=== PATIENT | male | born 1955 | race African-American/Black ===

== ENCOUNTER 2016-12-10 00:25 | Inpatient (IN) | payer OTHER ==
[~2016-12-10] VITALS: Ht 195.6 cm; Wt 95.3 kg
--- NOTE | ~2016-12-10 | PN ---
Unit #: [id number] #: [id number] Patient: EUNICE FLORES [id number] [facility] [address] [place] [address] [id number] I MR#: [id number] NAME: EUNICE FLORES ROOM: [facility] Age: 61 Sex: M Admission Date: 12/10/2016 : 1955 Attending Physician: Mauricio Foote M.D. Admitting Physician: Mauricio Foote M.D. Primary Care Physician: Primary Care Physician Kiara BUSTOS PROGRESS NOTES DATE 12/23/2016 DISCUSSION The patient is abed. He continues to require one to one precautions secondary to his instability. The patient reports no psychotic symptoms when seen today but continues to exhibit some symptoms of confusion. His urinary issues persist. Dictated by... Mauricio Foote M.D. CB/fernando TD: 12/23/2016 23:01 JOB #: [id number] [facility] PROGRESS NOTES Page 1 of 1 X Mauricio Foote MD PROGRESS NOTE
--- NOTE | ~2016-12-10 | PN ---
Unit #: [id number] #: [id number] Patient: EUNICE FLORES [id number] [facility] [address] [place] [address] [id number] I MR#: [id number] NAME: EUNICE FLORES ROOM: [facility] [place][Note 2] Age: 61 Sex: M Admission Date: 12/10/2016 : 1955 Attending Physician: Mauricio Foote M.D. Admitting Physician: Mauricio Foote M.D. Primary Care Physician: Primary Care Physician Kiara BUSTOS PROGRESS NOTES DATE 12/13/2016 DISCUSSION The patient remains floridly psychotic. His delusions of paranoia are such that the patient is actually tearful during today's interview, fearful that he is going to be harmed if released from the hospital. I will increase Haloperidol to 5 mg twice daily. Dictated by... Mauricio Foote M.D. CB/bzg TD: 12/13/2016 14:07 JOB #: [id number] [facility] PROGRESS NOTES Page 1 of 1 X Mauricio Foote MD PROGRESS NOTE
--- NOTE | ~2016-12-10 | PN ---
Unit #: [id number] #: [id number] Patient: EUNICE FLORES [id number] [facility] [address] [place] [address] [id number] I MR#: [id number] NAME: EUNICE FLORES ROOM: [facility] Age: 61 Sex: M Admission Date: 12/10/2016 : 1955 Attending Physician: Mauricio Foote M.D. Admitting Physician: Mauricio Foote M.D. Primary Care Physician: Primary Care Physician Kiara BUSTOS PROGRESS NOTES DATE 12/19/2016 DISCUSSION The patient remains abed and one-to-one precautions remain necessary secondary to his unsteadiness. He continues to exhibit picking at his bed clothes consistent with the delirium. We continue current aggressive pharmacotherapy. His repeat urinalysis was entirely normal. We await results of CMP and CBC with diff. Dictated by... Mauricio Foote M.D. REINIER/jeannie TD: 12/19/2016 13:41 JOB #: [id number] [facility] PROGRESS NOTES Page 1 of 1 X Mauricio Foote MD PROGRESS NOTE
--- NOTE | ~2016-12-10 | CO ---
Unit #: [id number] #: [id number] Patient: EUNICE FLORES [id number] [place] [address] [id number] I MR#: [id number] NAME: EUNICE FLORES ROOM: [facility] Age: 61 Sex: M Admission Date: 12/10/2016 : 1955 Attending Physician: Mauricio Foote M.D. Primary Care Physician: Primary Care Physician No Consultation Date: 12/25/2016 CONSULTATION REPORT SUBJECTIVE Lencho is a 61-year-old, housed on [address]. Sometime in the past 72 hours, he fell, injuring his right elbow. He sustained an abrasion to the elbow and over the past 24 hours, has developed swelling, heat, and pus in the area. X-rays done on 12/24/2016 showed no dislocation or fracture of the elbow or right shoulder. OBJECTIVE Alert, elderly gentleman, sitting in a wheelchair, who complains of discomfort in his elbow with minimal manipulation. Right elbow approximately quarter-sized braced area with small amount of pus. The elbow is swollen warm and very tender. No odor is noted. ASSESSMENT Cellulitis, right elbow. PLAN 1. Rocephin 500 mg IM now. Start Cipro 750 mg b.i.d. on 12/26/2016. 2. I have written orders to ask for medical social consultant's help in getting this gentleman to a rehab/nursing facility. Dictated by... Sharee Millan P.A.-C. for Nettie Rowland/jorgito TD: 12/25/2016 17:40 JOB #: [id number] CONSULTATION REPORT Page 1 of 1 X Sharee Millan CONSULTATION REPORT
--- NOTE | ~2016-12-10 | PN ---
Unit #: [id number] #: [id number] Patient: UENICE FLORES [id number] [facility] [address] [place] [address] [id number] MR#: [id number] NAME: EUNICE FLORES ROOM: [facility] Age: 61 Sex: M Admission Date: 12/10/2016 : 1955 Attending Physician: Mauricio Foote M.D. Admitting Physician: Mauricio Foote M.D. Primary Care Physician: Primary Care Physician Kiara BUSTOS PROGRESS NOTES DATE 12/25/2016 DISCUSSION The patient continues to appear confused in spite of reduction in his pharmacotherapy. He remains quite unsteady. I will ask for Physical Therapy to come and see the patient in hopes that perhaps he would qualify for a physical therapy rehab stint following his discharge from the hospital given the degree of weakness he is exhibiting here in the hospital. He remains quite disorganized and confused and appears delirious. We continue to await word regarding the patient's elbow wound. Dictated by... Mauricio Foote M.D. REINIER/jeannie TD: 12/25/2016 14:26 JOB #: [id number] [facility] PROGRESS NOTES Page 1 of 1 X Maurciio Foote MD X PROGRESS NOTE
--- NOTE | ~2016-12-10 | PN ---
Unit #: [id number] #: [id number] Patient: EUNICE FLORES [id number] [facility] [address] [place] [address] [id number] I MR#: [id number] NAME: EUNICE FLORES ROOM: [facility] [place] Age: 61 Sex: M Admission Date: 12/10/2016 : 1955 Attending Physician: Mauricio Foote M.D. Admitting Physician: Mauricio Foote M.D. Primary Care Physician: Primary Care Physician Kiara BUSTOS PROGRESS NOTES DATE 12/15/2016 DISCUSSION The patient is resting comfortably this morning. Staff reports that the patient has periods of lucidity but has also had periods where he appears to be continuing to respond to internal stimuli. He also has exhibited significant mood lability. We continue aggressive pharmacotherapy with the addition of fairly highly dosed Haldol in the hope that the patient will sustain progress. Dictated by... Mauricio Foote M.D. CB/jeannie TD: 12/15/2016 11:42 JOB #: [id number] [facility] PROGRESS NOTES Page 1 of 1 X Mauricio Foote MD X PROGRESS NOTE
--- NOTE | ~2016-12-10 | CO ---
Unit #: [id number] #: [id number] Patient: EUNICE FLORES [id number] [facility] [address] [place] [address] [id number] I MR#: [id number] NAME: EUNICE FLORES ROOM: [facility] Age: 61 Sex: M Admission Date: 12/10/2016 : 1955 Attending Physician: Mauricio Foote M.D. Primary Care Physician: Primary Care Physician No Consultation Date: 12/16/2016 CONSULTATION REPORT ORDERING PROVIDER Dr. Foote. REASON FOR CONSULT Weakness, incontinence, confusion and a fall from the bed with right elbow injury. SUBJECTIVE The patient reports that he has had issues with confusion on and off for months to years. He does, however, report some new worsening generalized weakness. He denies ever having a stroke or TIA. He denies that the weakness is one sided. He denies any slurred speech and reports that at times, the weakness is better. He does report that yesterday he was trying to get out of bed and fell injuring his right elbow. He at times does not make it to the bathroom to urinate and has had some issues with incontinence as well. This is a new finding since being admitted to [facility]. OBJECTIVE Other than generalized weakness, his neuro examination is within normal limits. His vital signs are stable. His labs upon admission were unremarkable. His medications were reviewed and he is noted to be on several sedating and mind-altering medications including gabapentin, Seroquel, Remeron and Haldol. He did appear to be awake, alert, and oriented when I spoke to him, but per nursing, he seems to get worse at night, possibly due to the sedating medications. ASSESSMENT Weakness, confusion and incontinence. PLAN Zofran was ordered per nursing request for some nausea even though the patient could not discuss that with me. We will get repeat lab work including urinalysis. If all of that is normal, I would advise Psychiatry to take a look at his medications and see if any changes need to be made. I did go ahead and discontinue his gabapentin for now, although he was on a fairly low dose, but I am unsure if that were causing any of the symptoms. We will continue to monitor. Dictated by... Sherry Monique A.P.R.N. Unit #: [id number] #: [id number] Patient: EUNICE FLORES LYNNETTE/jorgito TD: 12/17/2016 02:41 JOB #: [id number] CONSULTATION REPORT Page 1 of 1 X SHERRY MONIQUE APRN CONSULTATION REPORT
--- NOTE | ~2016-12-10 | PN ---
Unit #: [id number] #: [id number] Patient: EUNICE FLORES [id number] [facility] [address] [place] [address] [id number] I MR#: [id number] NAME: EUNICE FLORES ROOM: [facility] Age: 61 Sex: M Admission Date: 12/10/2016 : 1955 Attending Physician: Mauricio Foote M.D. Admitting Physician: Mauricio Foote M.D. Primary Care Physician: Primary Care Physician Kiara BUSTOS PROGRESS NOTES DATE 12/22/2016 DISCUSSION The patient remains on one-to-one precautions, and we remain concerned about the patient's unsteady gait. He does seem less confused and paranoid with reduction of medications, and we will hold the Seroquel dose of 400 mg for the time being. Dictated by... Mauricio Foote M.D. CB/bzg TD: 12/22/2016 11:27 JOB #: [id number] [facility] NOTES Page 1 of 1 X Mauricio Foote MD PROGRESS NOTE
--- NOTE | ~2016-12-10 | PN ---
Unit #: [id number] #: [id number] Patient: EUNICE FLORES [id number] [facility] [address] [place] [address] [id number] I MR#: [id number] NAME: EUNICE FLORES ROOM: [facility] Age: 61 Sex: M Admission Date: 12/10/2016 : 1955 Attending Physician: Mauricio Foote M.D. Admitting Physician: Mauricio Foote M.D. Primary Care Physician: Primary Care Physician Kiara PENA NOTES DATE 12/16/2016 DISCUSSION The patient is now exhibiting symptoms consistent with a possible delirium with periods of lucidity coupled with periods of extreme confusion. It was thought that he was experiencing extrapyramidal symptoms last night and Haldol was briefly held however on examination this morning the patient exhibits absolutely no stiffness or cogwheeling. I will restart low dose Haldol and add scheduled Cogentin. The patient was incontinent of urine last evening and there is some question as to whether he may be suffering from urinary tract infection which could be the cause of his confusional state. I will recheck a UDS. However the patient has had to 2 UDS in the past week and both were negative. Dictated by... Mauricio Foote M.D. CB/fernando TD: 12/16/2016 21:33 JOB #: [id number] [facility] NOTES Page 1 of 1 X Mauricio Foote MD X PROGRESS NOTE
--- NOTE | ~2016-12-10 | PA ---
Unit #: [id number] #: [id number] Patient: EUNICE FLORES [id number] [place] [address] [id number] I MR#: [id number] NAME: EUNICE FLORES ROOM: [facility] Age: 61 Sex: M Admission Date: 12/10/2016 : 1955 Date of Assessment: 12/11/2016 Attending Physician: Mauricio Foote M.D. Admitting Physician: Mauricio Foote M.D. Primary Care Physician: Primary Care Physician No PSYCHIATRIC ASSESSMENT IDENTIFYING INFORMATION The patient is a 61-year-old male admitted with increasing paranoia. CHIEF COMPLAINT None given. INFORMANT(S) Patient and chart, reliability good. HISTORY OF PRESENT ILLNESS The patient is a 61-year-old male who is chronically psychiatrically ill. He is currently prescribed Remeron, Wellbutrin, gabapentin, Lamictal, and Seroquel. Most recently, the patient has been more and more paranoid stating that he is fearful that others are out to harm him. He has reached a point where he is actually going from place to place, hiding in bushes secondary to his concerns. The patient denies abuse of any psychoactive substances and states that he has been compliant with his prescribed medications. He denies recent changes in sleep or appetite. The patient does have a history of previous psychiatric hospitalization under similar circumstances. PAST PSYCHIATRIC HISTORY As above. PAST MEDICAL HISTORY Significant for a history of hyperlipidemia, glaucoma, hypertension, and foot pain. MEDICATIONS Remeron, Wellbutrin, gabapentin, Seroquel, Lamictal, hydrochlorothiazide, Pravastatin, and Travatan. ALLERGIES None. FAMILY HISTORY Noncontributory. SOCIAL HISTORY The patient lives alone. He is not presently employed. He reports that he is a smoker. He denies abuse of other psychoactive substances. Unit #: [id number] #: [id number] Patient: EUNICE FLORES MENTAL STATUS EXAMINATION Examination at this time reveals the patient to be a tall, thin, male appearing his stated age. He is in no apparent physical distress at the time of the examination. He is awake, alert, and oriented in all spheres. His mood is dysphoric, his affect blunted. Speech is generally well-coherent. There are no gross deficits in memory or cognition noted. Intelligence is judged to be in the average range based on fund of knowledge. The patient is cooperative throughout the interview. He is currently denying suicidal or homicidal ideation. He does report positive paranoid delusional thinking, and judgment and insight appear to be significantly impaired. ASSETS AND LIABILITIES The patient's assets are to be assessed. Liabilities: Lack of resources. DIAGNOSTIC IMPRESSION Schizoaffective disorder. TREATMENT PLAN The patient is already on a maximum dose of Seroquel and further upward titration of that medication which seemed to be pointless. Instead, I will go ahead and start the patient on low-dose Haloperidol to augment the clinical effect of his high dose of Seroquel. The patient will participate in appropriate order of milieu activities. ESTIMATED LENGTH OF STAY 7 days. Dictated by... Mauricio Foote M.D. REINIER/jeannie TD: 12/11/2016 14:14 JOB #: [id number] PSYCHIATRIC ASSESSMENT Page 1 of 1 X Mauricio Foote MD X PSYCHIATRIC ASSESSMENT
--- NOTE | ~2016-12-10 | PN ---
Unit #: [id number] #: [id number] Patient: EUNICE FLORES [id number] [facility] [address] [place] [address] [id number] I MR#: [id number] NAME: EUNICE FLORES ROOM: [facility] Age: 61 Sex: M Admission Date: 12/10/2016 : 1955 Attending Physician: Mauricio Foote M.D. Admitting Physician: Mauricio Foote M.D. Primary Care Physician: Primary Care Physician Kiara BUSTOS PROGRESS NOTES DATE 12/12/2016 DISCUSSION The patient has tolerated initiation of low-dose Haldol without complaint. He seems less paranoid during today's interview and states that he has been attending programming. The staff reports he has been somewhat seclusive to room. We continue current pharmacotherapy. Dictated by... Mauricio Foote M.D. REINIER/jeannie TD: 12/12/2016 13:15 JOB #: [id number] [facility] PROGRESS NOTES Page 1 of 1 X Mauricio Foote MD PROGRESS NOTE
--- NOTE | ~2016-12-10 | CR94 ---
[facility] A Service of [facility] & [facility] RADIOLOGY TEXT RESULTS PATIENT: EUNICE FLORES LOCATION: P2L P265-1 : [birth year] UNIT #: [id number] AGE: [address]: Mauricio Foote MD SEX: M ORDER DR: [id number] [facility] [address] [place], [place] [address] [id number] I MR#: [id number] Acc #: [id number] NAME: EUNICE FLORES : 1955 SEX: M STUDY DATE/TIME: 12/24/2016 12:10 UNIT: P2 ROOM: [facility] STUDY DESCRIPTION: CR Elbow Min 3 Views Rt Attending Physician: Mauricio Foote M.D. Ordering Physician: Keon Martinez M.D. Primary Care Physician: Primary Care Physician No MEDICAL IMAGING REPORT This report is preliminary unless electronic signature is present EXAM Right elbow 2 views, 12/24/2016 HISTORY Right elbow pain and swelling status post fall 2 days ago. FINDINGS Two views of the right elbow demonstrate no fracture. The bones are normally mineralized. There is soft tissue swelling about the right elbow. No foreign body is seen. IMPRESSION Soft tissue swelling about the right elbow. No evidence of fracture. Dictated by... Roger Toure M.D. THIS IS AN ELECTRONICALLY VERIFIED REPORT Roger Toure M.D. at 12/25/2016 10:35 AM HERMELINDO/makenzie TD: 12/24/2016 13:26 JOB #: [id number] MEDICAL IMAGING REPORT Page 1 of 1 COPY
--- NOTE | ~2016-12-10 | PN ---
Unit #: [id number] #: [id number] Patient: EUNICE FLORES [id number] [facility] [address] [place] [address] [id number] I MR#: [id number] NAME: EUNICE FLORES ROOM: [facility] Age: 61 Sex: M Admission Date: 12/10/2016 : 1955 Attending Physician: Mauricio Foote M.D. Admitting Physician: Mauricio Foote M.D. Primary Care Physician: Primary Care Physician Kiara BUSTOS PROGRESS NOTES DATE 12/17/2016 DISCUSSION The patient remains abed. He is more awake and alert today but continues to exhibit confusion and paranoia. We continue current treatment. Dictated by... Mauricio Foote M.D. CB/fernando TD: 12/17/2016 20:48 JOB #: [id number] [facility] PROGRESS NOTES Page 1 of 1 X Mauricio Foote MD X PROGRESS NOTE
--- NOTE | ~2016-12-10 | PN ---
Unit #: [id number] #: [id number] Patient: EUNICE FLORES [id number] [facility] [address] [place] [address] [id number] I MR#: [id number] NAME: EUNICE FLORES ROOM: [facility] Age: 61 Sex: M Admission Date: 12/10/2016 : 1955 Attending Physician: Mauricio Foote M.D. Admitting Physician: Mauricio Foote M.D. Primary Care Physician: Primary Care Physician Kiara BUSTOS PROGRESS NOTES DATE 12/18/2016 DISCUSSION The patient remains on one-to-one precautions and remains quite confused and unsteady. I will go ahead and discontinue Haldol altogether, and in fact reduced the patient's Seroquel to 600 mg. We await yesterday's laboratory testing including ammonia levels, CMP, CBC with diff. Dictated by... Mauricio Foote M.D. REINIER/jeannie TD: 12/18/2016 14:26 JOB #: [id number] [facility] PROGRESS NOTES Page 1 of 1 X Mauricio Foote MD PROGRESS NOTE
--- NOTE | ~2016-12-10 | CO ---
Unit #: [id number] #: [id number] Patient: EUNICE FLORES [id number] [facility] [address] [place] [address] [id number] I MR#: [id number] NAME: EUNICE FLORES ROOM: [facility] Age: 61 Sex: M Admission Date: 12/10/2016 : 1955 Attending Physician: Mauricio Foote M.D. Primary Care Physician: Primary Care Physician No Consultation Date: 12/24/2016 CONSULTATION REPORT Ordering provider is Dr. Foote. REASON FOR CONSULTATION Right elbow pain and swelling. SUBJECTIVE The patient has either delirium or dementia and questions were not always answered appropriately. He did report pain in both his right elbow and right shoulder. He refused to do range of motion activities. He could tell that he fell. He could not tell me when. He said when he fell, he did hit his right elbow. OBJECTIVE There is significant swelling on the olecranon process of his right elbow. There is a small cut that is not draining or appear infected. He refused any range of motion. When I tried to roll him over to take a look at his elbow, he continued to complain of pain in his right shoulder as well and kept grabbing in his right shoulder. ASSESSMENT Right elbow and right shoulder pain. PLAN Plan is to x-ray both areas. He does need to keep his elbow propped on a pillow when in bed and I did instruct the nurses to turn him every 2 hours while he is in bed to prevent pressure ulcers as well. We will continue to monitor. Dictated by... Coleen Galo/jorgito TD: 12/25/2016 12:36 JOB #: [id number] Unit #: [id number] #: [id number] Patient: EUNICE FLORES CONSULTATION REPORT Page 1 of 1 X CHINEDU ARORA APRN CONSULTATION REPORT
--- NOTE | ~2016-12-10 | PN ---
Unit #: [id number] #: [id number] Patient: EUNICE FLORES [id number] [facility] [address] [place] [address] [id number] I MR#: [id number] NAME: EUNICE FLORES ROOM: [facility] Age: 61 Sex: M Admission Date: 12/10/2016 : 1955 Attending Physician: Mauricio Foote M.D. Admitting Physician: Mauricio Foote M.D. Primary Care Physician: Primary Care Physician Kiara BUSTOS PROGRESS NOTES DATE 12/24/2016 DISCUSSION The patient continues to require one to one precautions given his ongoing confusion and unsteadiness downward titration of his medications has shown some improvement and the patient mentation but he remains unsteady on his feet. He is complaining of significant shoulder pain and x-rays have been ordered and we will recheck a urinalysis as the patient is complaining of some dysuria and is exhibiting concentrated malodorous urine. Dictated by... Mauricio Foote M.D. CB/fernando TD: 12/24/2016 20:54 JOB #: [id number] [facility] NOTES Page 1 of 1 X Mauricio Foote MD PROGRESS NOTE
--- NOTE | ~2016-12-10 | PN ---
Unit #: [id number] #: [id number] Patient: EUNICE FLORES [id number] [facility] [address] [place] [address] [id number] I MR#: [id number] NAME: EUNICE FLORES ROOM: [facility] Age: 61 Sex: M Admission Date: 12/10/2016 : 1955 Attending Physician: Mauricio Foote M.D. Admitting Physician: Mauricio Foote M.D. Primary Care Physician: Primary Care Physician Kiara BUSTOS PROGRESS NOTES DATE 12/26/2016 DISCUSSION The patient remained significantly confused but has really been no management problem according to staff given his unsteadiness, we will ask someone from [facility] to see the patient per recommendations of occupational therapy for possible transfer to that facility. Dictated by... Mauricio Foote M.D. CB/monik TD: 12/26/2016 13:22 JOB #: [id number] [facility] NOTES Page 1 of 1 X Mauricio Foote MD PROGRESS NOTE
--- NOTE | ~2016-12-10 | CR230 ---
[facility] A Service of [facility] & [facility] RADIOLOGY TEXT RESULTS PATIENT: EUNICE FLORES LOCATION: P2L P265-1 : [birth year] UNIT #: [id number] AGE: [address]: Mauricio Foote MD SEX: M ORDER DR: [id number] [facility] [address] [place], [place] [address] [id number] I MR#: [id number] Acc #: [id number] NAME: EUNICE FLORES : 1955 SEX: M STUDY DATE/TIME: 12/24/2016 12:27 UNIT: P2 ROOM: [facility] STUDY DESCRIPTION: CR Shoulder Min 2 View Rt Attending Physician: Mauricio Foote M.D. Ordering Physician: Keon Martinez M.D. Primary Care Physician: Primary Care Physician No MEDICAL IMAGING REPORT This report is preliminary unless electronic signature is present EXAM Right shoulder 2 views 12/24/2016 HISTORY Right shoulder pain and swelling status post fall 2 days ago. FINDINGS Two views of the right shoulder demonstrate no fracture. There is degenerative change with elevation of the right humeral head relative to the glenoid. There is osteophytic spurring and subchondral cyst formation involving the acromion. The bones are otherwise normally mineralized. There is no soft tissue abnormality. IMPRESSION Degenerative change right shoulder. No acute abnormality. Dictated by... Roger Toure M.D. THIS IS AN ELECTRONICALLY VERIFIED REPORT Roger Toure M.D. at 12/25/2016 10:36 AM HERMELINDO/jordi TD: 12/24/2016 13:19 JOB #: [id number] MEDICAL IMAGING REPORT Page 1 of 1 COPY
--- NOTE | ~2016-12-10 | DS ---
Unit #: [id number] #: [id number] Patient: EUNICE FLORES [id number] [facility] [address] [place] [address] [id number] MR#: [id number] NAME: EUNICE FLORES ROOM: [facility] Age: 61 Sex: M Admission Date: 12/10/2016 : 1955 Discharge Date: 12/28/2016 Attending Physician: Mauricio Foote M.D. Primary Care Physician: Primary Care Physician No DISCHARGE SUMMARY REASON FOR ADMISSION The patient is an male, admitted with increasing psychosis. HOSPITAL COURSE The patient was admitted to the [address] [place] [address] unit and placed on suicide precautions. Initially he was continued on high dose Seroquel was not addressing his symptoms of psychosis, he was begun on Haldol augmentation. Unfortunately, he exhibited significant symptoms of extrapyramidal response to Haldol and this medication was eventually abandoned. Throughout this course the patient became progressively weaker requiring one-to-one precautions, given his propensity to leave his wheelchair to attempt to ambulate, and became more and more confused and began to refuse eating. He also began to experience urinary retention, two days before discharge, after his Seroquel had been titrated downward from 800 mg to 400 mg, a decision was made to undertake a full medication washout. Unfortunately, the patient continued to deteriorate and on 12/28/2016, the patient was unable to void and appeared more confused. He was transferred to [facility] and admitted. DISCHARGE DIAGNOSES Sturgis I Schizoaffective disorder. Cocaine use disorder. Sturgis II Sturgis III History of oropharyngeal cancer. Sturgis IV Sturgis V DISPOSITION ON DISCHARGE The patient is discharged to [facility]. No followup is planned at this time. Dictated by... Mauricio Foote M.D. CB/monik TD: 12/31/2016 08:18 Unit #: [id number] #: [id number] Patient: EUNICE FLORES JOB #: [id number] DISCHARGE SUMMARY Page 1 of 1 X Mauricio Foote MD X DISCHARGE SUMMARY
--- NOTE | ~2016-12-10 | PN ---
Unit #: [id number] #: [id number] Patient: EUNICE FLORES [id number] [facility] [address] [place] [address] [id number] MR#: [id number] NAME: EUNICE FLORES ROOM: [facility] Age: 61 Sex: M Admission Date: 12/10/2016 : 1955 Attending Physician: Mauricio Foote M.D. Admitting Physician: Mauricio Foote M.D. Primary Care Physician: Primary Care Physician Kiara BUSTOS PROGRESS NOTES DATE 12/27/2016 DISCUSSION The patient's condition continues to show little if any improvement. It is my feeling that it is time for a full "med washout." Accordingly, I will discontinue Remeron, Wellbutrin, Lamictal, and Seroquel, and will leave only p.r.n. haloperidol in place as well as Cogentin as the patient has had some propensity for extrapyramidal symptoms. Dictated by... Mauricio Foote M.D. CB/jeannie TD: 12/27/2016 13:15 JOB #: [id number] [facility] PROGRESS NOTES Page 1 of 1 X Mauricio Foote MD PROGRESS NOTE
--- NOTE | ~2016-12-10 | PN ---
Unit #: [id number] #: [id number] Patient: EUNICE FLORES [id number] [facility] [address] [place] [address] [id number] I MR#: [id number] NAME: EUNICE FLORES ROOM: [facility] Age: 61 Sex: M Admission Date: 12/10/2016 : 1955 Attending Physician: Mauricio Foote M.D. Admitting Physician: Mauricio Foote M.D. Primary Care Physician: Primary Care Physician Kiara BUSTOS PROGRESS NOTES DATE 12/21/2016 DISCUSSION The patient is a bit improved today. His labs show slight hyponatremia and some dehydration. Staff reports that he has been exhibiting some sundowning but that he seems a bit less confused today. We continue current treatment. Dictated by... Mauricio Foote M.D. CB/jeannie TD: 12/21/2016 13:58 JOB #: [id number] AKASH PROGRESS NOTES Page 1 of 1 X Mauricio Foote MD X PROGRESS NOTE
--- NOTE | ~2016-12-10 | HP ---
Unit #: [id number] #: [id number] Patient: GILES FLORES [id number] [place] [address] [id number] MR#: [id number] NAME: GIELS FLORES ROOM: [facility] Age: 61 Sex: M Admission Date: 12/10/2016 : 1955 Attending Physician: Mauricio Foote M.D. Admitting Physician: Mauricio Foote M.D. Primary Care Physician: Primary Care Physician No HISTORY AND PHYSICAL HISTORY OF PRESENT ILLNESS Giles is a 61 year old admitted to [address] [place] [address] with depression and verbalizing wanting to hurt himself. PAST MEDICAL HISTORY 1. High blood pressure. 2. Hyperlipidemia. 3. Peripheral neuropathy. a. Chronic pain. PAST SURGICAL HISTORY Nothing reported. ALLERGIES No known drug allergies. SOCIAL HISTORY Smokes one pack per day. Drinks wine on occasion. Admits to using marijuana. FAMILY HISTORY Medically noncontributory. REVIEW OF SYSTEMS CONSTITUTIONAL: No fever or chills. HEENT: Denies any sore throat, ear pain or runny nose. CARDIOVASCULAR: Denies chest pain, irregular heart rhythm or palpitations. CHEST: Denies shortness of breath or cough. No hemoptysis. GASTROINTESTINAL: Denies nausea, vomiting, diarrhea or chronic constipation. ENDOCRINE: Denies history of increased thirst or urination. No recent significant weight loss or gain. GENITOURINARY: Denies dysuria, frequency, or hematuria. SKIN: Denies any rashes. HEMATOLOGIC: Denies history of increased bleeding or bruising. MUSCULOSKELETAL: Denies any hot, swollen joints. No generalized muscle pain. NEUROLOGIC: Denies problems with vision or speech. No frequent, severe headaches. No numbness, tingling or weakness in any extremities. Denies loss of bladder or bowel control. CURRENT MEDICATIONS 1. Lipitor 10 mg q. day. Unit #: [id number] #: [id number] Patient: GILES FLORES 2. Seroquel 800 mg q.h.s. 3. Remeron 30 mg q.h.s. 4. Wellbutrin 200 mg b.i.d. 5. Milk of Magnesia p.r.n. 6. Maalox p.r.n. 7. Tylenol p.r.n. 8. Xalatan q. day. 9. HCTZ 25 mg q. day. 10. Lamictal 300 mg q. day. 11. Neurontin 400 mg q. day. PHYSICAL EXAMINATION GENERAL: Alert, well nourished. No apparent distress. VITAL SIGNS: Blood pressure 122/78, heart rate 80, respirations 16, and temperature 98.6. WEIGHT: 210. HEIGHT: 6 feet 5 inches. SKIN: Warm and dry without rash or lesion. HEENT: Normocephalic. TMs not viewed. Oral and nasal passages clear. Conjunctivae clear. PERRLA. EOMs intact. NECK: Supple without lymphadenopathy or thyromegaly. HEART: Regular rate and rhythm without murmur. LUNGS: Clear. ABDOMEN: Soft, nontender. : Not done. EXTREMITIES: No evidence of cyanosis, clubbing or edema. Moves all without focal deficit. NEUROLOGICAL: Grossly within normal limits. Cranial Nerves: II: Visual polk are intact. III, IV AND : Extraocular movements are intact. Pupils are equal, round and reactive to light. V: Facial sensation is grossly normal. VII: Facial movements and expression are normal. VIII: Auditory acuity grossly intact. IX, X: Uvula is midline. Phonation is normal. XI: Patient shrugs shoulders and turns head normally. XII: Tongue protrudes in the midline. Sensory and Motor Function: Sensory and motor sensation is grossly normal. Motor: moves all extremities well. Coordination: Gait is normal. Deep Tendon Reflexes: Intact. IMPRESSION Psychiatric admission. RECOMMENDATIONS PSYCHIATRIC: Per psychiatrist. MEDICAL: I see no contraindication to participate in this facility's activities. MEDICAL PROGNOSIS Good. MEDICAL CONDITION Stable. Dictated by... Sharee Millan P.A.-C. for Unit #: [id number] #: [id number] Patient: GILES FLORES Nettie Rowland/jeannie TD: 12/11/2016 11:19 JOB #: [id number] HISTORY AND PHYSICAL Page 1 of 1 X Sharee Millan HISTORY AND PHYSICAL
[~2016-12-10 00:25] MED LIST: (NONE)500 MCG PO; ACIPHEX20 MG PO; ASPIRIN81 M2 PO; CARDURA PO; CARDURA8 MG PO; HYDROCHLOROTHIA25 MG PO; LAMICTAL PO; NEURONTIN800 MG PO; PRAVACHOL PO; PRILOSEC20 M1 PO; PROCTOZONE-HC30 G2 RC; PROTONIX PO; REMERON PO; SEROQUEL XR150 MG PO; TRAVATAN2.5 ML OU; TRAZODONE PO; TRIAMCINOLONE AC1 GM EXT; VITAMIN B 12 PO
[2016-12-11 09:37] LABS: URINE APPEARANCE CLOUDY; URINE BILIRUBIN NEG (NEG); URINE BLOOD NEG (NEG); URINE COLOR YELLOW; URINE GLUCOSE 100 MG/DL (NEG); URINE KETONE NEG (NEG); URINE LEUKOCYTE ESTERASE TRACE (NEG); URINE NITRATE NEG (NEG); URINE PH 5.5 (5-8); URINE PROTEIN NEG (NEG); URINE SPECIFIC GRAVITY 1.021 (1.003-1.035); URINE UROBILINOGEN 0.2 MG/DL (NEG)
[2016-12-11 09:40] LABS: URINE BACTERIA AUWI NEG (NEGATIVE); URINE SQUAMOUS EPITHELIAL CELL MOD /[HPF]
[2016-12-11 10:36] LABS: AMPHETAMINE NEG (NEG); BARBITURATES NEG (NEG); BENZODIAZEPINES NEG (NEG); COCAINE NEG (NEG); MARIJUANA POS (NEG); OPIATES NEG (NEG); TRICYCLIC ANTIDEPRESSANTS POS (NEG); U METHADONE NEG (NEG)
[2016-12-12 12:24] LABS: BASOPHIL% 1.2 % (0-2.5); EOSINOPHIL% 0.7 % (0.0-7.0); HEMATOCRIT 39.7 % (38.0-50.0); HEMOGLOBIN 13.2 gm/dL (13.0-16.0); MEAN CELL VOLUME 96.4 FL (83-96); MEAN CORPUSCULAR HEMOGLOBIN 32.1 PG (28-34); MEAN CORPUSCULAR HGB CONC 33.3 g/dL (30-36); MEAN PLATELET VOLUME 8.5 FL (6.5-11.5); MONOCYTE# 0.3 X10e3 (0-1.0); NEUTROPHIL# 2.1 X10e3 (1.5-7.1); NEUTROPHIL% 60.1 % (40-75); PLATELET COUNT 206 X10e3 (140-420); RED BLOOD COUNT 4.12 X10e (3.90-5.60); RED CELL DISTRIBUTION WIDTH 13.5 % (11.0-15.5); WHITE BLOOD COUNT 3.5 X10e3 (4.0-10.5)
[2016-12-12 12:30] LABS: DIFF IND NO
[2016-12-12 12:37] LABS: ALBUMIN SERUM 4.3 g/dL (3.5-5.0); BILIRUBIN,TOTAL 0.3 mg/dL (0.2-2.0); BUN/CREATININE RATIO 13.33; CALCIUM SERUM 10.2 mg/dL (8.4-10.2); CREATININE SERUM 1.2 mg/dL (0.6-1.4); GLOM FILT RATE Estimated 74.7 mL/min (>60); POTASSIUM 4.2 mmol/L (3.5-5.1); PROTEIN TOTAL SERUM 7.1 g/dL (6.0-8.3)
[2016-12-16 16:53] LABS: URINE SOURCE CLEAN CATCH
[2016-12-16 17:08] LABS: URINE APPEARANCE CLEAR; URINE BILIRUBIN NEG (NEG); URINE BLOOD NEG (NEG); URINE COLOR YELLOW; URINE GLUCOSE 100 MG/DL (NEG); URINE KETONE NEG (NEG); URINE LEUKOCYTE ESTERASE NEG (NEG); URINE NITRATE NEG (NEG); URINE PROTEIN NEG (NEG); URINE UROBILINOGEN 0.2 MG/DL (NEG)
[2016-12-20 16:01] LABS: BASOPHIL% 0.4 % (0-2.5); EOSINOPHIL% 0.4 % (0.0-7.0); HEMATOCRIT 42.2 % (38.0-50.0); HEMOGLOBIN 14.4 gm/dL (13.0-16.0); LYMPHOCYTE% 15.3 % (17.0-45.0); MEAN CELL VOLUME 95.1 FL (83-96); MEAN CORPUSCULAR HEMOGLOBIN 32.4 PG (28-34); MEAN CORPUSCULAR HGB CONC 34.1 g/dL (30-36); MEAN PLATELET VOLUME 8.6 FL (6.5-11.5); MONOCYTE# 0.6 X10e3 (0-1.0); MONOCYTE% 8.2 % (3.0-12.0); NEUTROPHIL# 5.2 X10e3 (1.5-7.1); NEUTROPHIL% 75.7 % (40-75); PLATELET COUNT 226 X10e3 (140-420); RED BLOOD COUNT 4.44 X10e (3.90-5.60); RED CELL DISTRIBUTION WIDTH 13.1 % (11.0-15.5); WHITE BLOOD COUNT 6.8 X10e3 (4.0-10.5)
[2016-12-20 16:05] LABS: DIFF IND NO
[2016-12-20 16:27] LABS: ALBUMIN SERUM 4.8 g/dL (3.5-5.0); BILIRUBIN,TOTAL 0.9 mg/dL (0.2-2.0); BUN/CREATININE RATIO 27.36; CALCIUM SERUM 10.8 mg/dL (8.4-10.2); CREATININE SERUM 1.9 mg/dL (0.6-1.4); GLOM FILT RATE Estimated 42.8 mL/min (>60); POTASSIUM 4.8 mmol/L (3.5-5.1); PROTEIN TOTAL SERUM 8.1 g/dL (6.0-8.3)
[2016-12-21 13:15] LABS: BUN/CREATININE RATIO 34.37; CALCIUM SERUM 10.4 mg/dL (8.4-10.2); CREATININE SERUM 1.6 mg/dL (0.6-1.4); GLOM FILT RATE Estimated 52.8 mL/min (>60); POTASSIUM 4.2 mmol/L (3.5-5.1)
[2016-12-22 12:55] LABS: BUN/CREATININE RATIO 31.76; CALCIUM SERUM 10.7 mg/dL (8.4-10.2); CREATININE SERUM 1.7 mg/dL (0.6-1.4)
[2016-12-24 13:10] LABS: BUN/CREATININE RATIO 35.38; CALCIUM SERUM 10.5 mg/dL (8.4-10.2); CREATININE SERUM 1.3 mg/dL (0.6-1.4); GLOM FILT RATE Estimated 67.8 mL/min (>60); POTASSIUM 4.3 mmol/L (3.5-5.1)
[2016-12-25 13:02] LABS: URINE APPEARANCE CLEAR; URINE BILIRUBIN NEG (NEG); URINE BLOOD NEG (NEG); URINE COLOR YELLOW; URINE GLUCOSE 100 MG/DL (NEG); URINE KETONE TRACE (NEG); URINE LEUKOCYTE ESTERASE NEG (NEG); URINE NITRATE NEG (NEG); URINE PROTEIN 1+ (NEG); URINE SPECIFIC GRAVITY 1.027 (1.003-1.035)
[2016-12-25 13:06] LABS: URINE BACTERIA AUWI NEG (NEGATIVE); URINE SQUAMOUS EPITHELIAL CELL NONE SEEN /[HPF]; UWBCS1 AUWI 0-2 (0-5)
[2016-12-28] MEDS ORDERED: ATORVASTATIN CA10 MG PO (14:18)
[2016-12-28] MEDS ORDERED: HYDROCHLOROTHIA25 MG PO (14:18)
[2016-12-28] MEDS ORDERED: LATANOPROST2.5 ML OU (14:19)
[2016-12-28] MEDS ORDERED: NYSTATIN100000 UN1 PO (14:19)
[2016-12-28] MEDS ORDERED: LEVAQUIN PO (14:20)
[2016-12-28] MEDS ORDERED: MAPAP325 M1 PO (14:20)
[2016-12-28] MEDS ORDERED: MAALOX SUSPENS355 ML PO (14:21)
[2016-12-28] MEDS ORDERED: MILK OF MAGNESIA PO (14:22)
[2016-12-28] MEDS ORDERED: EUCERIN CREME454 GM TOP (14:22)
[2016-12-28] MEDS ORDERED: ONDANSETRON ODT4 MG PO (14:22)
[2016-12-28] MEDS ORDERED: HALDOL PO (14:23)
[2016-12-28] MEDS ORDERED: COGENTIN1 MG PO (14:24)
== END 2016-12-28 18:23 | disposition short-term general hospital (02) | DRG 885 ==
LOC: P2L 12:17
PROVIDERS: Family Medicine; Specialist
DX: F25.9 Schizoaffective disorder, unspecified (principal); F14.20 Cocaine dependence, uncomplicated; G62.9 Polyneuropathy, unspecified; E87.1 Hypo-osmolality and hyponatremia; E86.0 Dehydration; I10 Essential (primary) hypertension; L03.113 Cellulitis of right upper limb; N39.0 Urinary tract infection, site not specified; E78.5 Hyperlipidemia, unspecified; F17.210 Nicotine dependence, cigarettes, uncomplicated; G89.29 Other chronic pain; R32 Unspecified urinary incontinence; M25.521 Pain in right elbow; M25.511 Pain in right shoulder; Z85.89 Personal history of malignant neoplasm of other organs and systems; H40.9 Unspecified glaucoma; W06.XXXA Fall from bed, initial encounter; Y92.230 Patient room in hospital as the place of occurrence of the external cause; R41.0 Disorientation, unspecified
CPT/HCPCS: 73030; 73080; 80048; 80053; 80307; 81003; 82140; 85025; J0515; J0696; J1200; J1630; J2060; J3486

== ENCOUNTER 2016-12-28 10:11 | Observation (INO) | payer OTHER ==
[~2016-12-28] VITALS: Ht 195.6 cm; Wt 83.2 kg
--- NOTE | ~2016-12-28 | MR17 ---
[facility] A [facility] RADIOLOGY TEXT RESULTS PATIENT: EUNICE FLORES LOCATION: [facility] : 53 UNIT #: [id number] AGE: [address]: Keon Martinez MD SEX: M ORDER DR: [id number] [address] [address] [id number] I MR#: [id number] Acc #: [id number] NAME: EUNICE FLORES : 1955 SEX: M STUDY DATE/TIME: 12/28/2016 15:41 UNIT: A PCU ROOM: [facility] STUDY DESCRIPTION: MR Brain WWo Contrast Attending Physician: Keon Martinez M.D. Ordering Physician: Josias Ortiz M.D. Primary Care Physician: No Primary Care Physician MRI CENTER REPORT This report is preliminary unless electronic signature is present. EXAM MR brain. INDICATIONS Generalized weakness. Urinary incontinence. Seizure. Altered mental status. Temporary encephalopathy. Fall 1 week ago. Headaches. TECHNIQUE Multiplanar MRI of the brain with and without IV contrast (18 mL MultiHance IV contrast). COMPARISON CT head 12/28/2016. FINDINGS The midline structures and craniocervical junction are within normal limits. Please note that there is several sequences degraded by motion artifact. There is mild generalized atrophy. No abnormal enhancing mass or lesions identified following administration of contrast. No intracranial hemorrhage or intracranial ischemia. There is a symmetric appearance of the medial temporal lobes. The ventricles and basilar cisterns are normal in size and configuration. No extraaxial collection or extraaxial mass. Visualized orbits and paranasal sinuses are clear. Soft tissues of the face are within normal limits. IMPRESSION 1. No acute intracranial findings. No evidence of intracranial ischemia. [facility] RADIOLOGY TEXT RESULTS PATIENT: EUNICE FLORES LOCATION: [facility] : 53 UNIT #: [id number] AGE: [address]: Keon Martinez MD SEX: M ORDER DR: Dictated by... Anderson Mello M.D. THIS IS AN ELECTRONICALLY VERIFIED REPORT Anderson Mello M.D. at 12/30/2016 1:24 PM EDNA/lenny TD: 12/30/2016 03:28 JOB #: [id number] MRI CENTER REPORT Page 1 of 1 COPY
--- NOTE | ~2016-12-28 | HP ---
Unit #: [id number] #: [id number] Patient: EUNICE FLORES [id number] [address] [address] [id number] E MR#: [id number] NAME: EUNICE FLORES ROOM: Age: 61 Sex: M Admission Date: 12/28/2016 : 1955 Attending Physician: Josias Ortiz M.D. Primary Care Physician: No Primary Care Physician HISTORY AND PHYSICAL CHIEF COMPLAINT Chief complaint is weakness. HISTORY OF PRESENT ILLNESS The patient is a 61-year-old man with a history of a throat cancer status post chemo and radiation back eight years ago and was admitted to the [facility] on December 10 for psychosis. The patient was transferred from the [facility] secondary to the generalized weakness associated with altered mental status. The patient has been having unsteady gait and the weakness and patient also complaining of lower abdominal pain for the last one week. The patient has been worked up in the emergency room and the ER physician was concerned about the normal pressure hydrocephalus and spoke to Dr. Ruby, neurology, and recommended the MRI of the brain and admission to the medicine service. The patient is being admitted for the above reasons. Patient is on the way to the MRI at the time of examination. The patient has a last time fall few days ago that was back on 17 of December. PAST MEDICAL HISTORY History of hypertension, throat cancer and prostate cancer and suicidal ideation, psychosis, hypertension, hyperlipidemia. PAST SURGICAL HISTORY Past surgical history is none. HOME MEDICATIONS Patient was on hydrochlorothiazide, atorvastatin, latanoprost, nystatin, Levaquin and acetaminophen, Maalox, milk of magnesia and Zofran and Eucerin cream and haloperidol and Cogentin. ALLERGIES No known drug allergies. SOCIAL HISTORY Positive for tobacco. Negative for alcohol and denies any illicit drug abuse. FAMILY HISTORY Reviewed and none. REVIEW OF SYMPTOMS Positive for weakness. Positive for altered mental status. Positive for the falls and negative for chest pain, negative for shortness of breath Unit #: [id number] #: [id number] Patient: EUNICE FLORES and all other systems have been reviewed and none. PHYSICAL EXAMINATION GENERAL APPEARANCE: On examination patient is lying on a bed not in acute distress. VITALS: Temperature 98.3, pulse 84 respiratory rate 16, blood pressure 117/78, sating 98% at room air. HEAD: Atraumatic/normocephalic. HEENT: Pupils equal, round and reacting to light and accommodation. Extraocular movements are intact. Dry mucous membrane. NECK: Supple. LUNGS: Decreased air entry at the bases. HEART: Regular rate and rhythm. ABDOMEN: Soft, positive bowel sounds. EXTREMITIES: No cyanosis. No clubbing. NEURO: No gross focal motor deficit. MUSCULOSKELETAL: Decreased movement/range of motion of the lower extremities secondary to the discomfort at the hip. PSYCH: Mood and affect are appropriate. DIAGNOSTIC STUDIES IMAGING: CT of the head showed negative and x-ray of the elbow shows no intraarticular joint effusion or fracture. There is a slight decrease in diffuse soft tissue swelling with persistent soft tissue density over the olecranon, likely fluid or hemorrhage in the olecranon bursa. This is slightly improved. LAB DATA: UA shows trace protein and sodium is 130, potassium 3.6, chloride 90, bicarb 28, glucose 93, BUN 47 and creatinine 1.4, AST 78, ALT 86, alkaline phosphatase 182, albumin 3.4 and WBC is 13, hemoglobin is 10.9, hematocrit 32.2, platelets 347, ammonia is 26. ASSESSMENT AND PLAN 1. Ataxia. 2. Hyponatremia. 3. Weakness. 4. Psychosis. Plan to admit the patient to the observation with the telemetry. Continue with the psych medications and continue with the IV fluids and follow with the MRI and the neurology consult as the ER has spoken to the neurologist for the MRI and further recommendations will follow as more lab results are available. Dictated by Nettie Sales/darío TD: 12/28/2016 18:14 JOB #: [id number] Unit #: [id number] #: [id number] Patient: EUNICE FLORES HISTORY AND PHYSICAL Page 1 of 1 X FÁTIMA PENNINGTON MD X HISTORY AND PHYSICAL
--- NOTE | ~2016-12-28 | MR32 ---
[facility] A Service of [facility] RADIOLOGY TEXT RESULTS PATIENT: EUNICE FLORES LOCATION: [facility] 303- : 53 UNIT #: [id number] AGE: [address]: Keon Martinez MD SEX: M ORDER DR: [id number] [place], [place] [address] [id number] I MR#: [id number] Acc #: [id number] NAME: EUNICE FLORES : 1955 SEX: M STUDY DATE/TIME: 12/29/2016 13:35 UNIT: C3A PCU ROOM: [facility] STUDY DESCRIPTION: MR Cervical Wo Contrast Attending Physician: Keon Martinez M.D. Ordering Physician: Keon Martinez M.D. Primary Care Physician: No Primary Care Physician MRI CENTER REPORT This report is preliminary unless electronic signature is present. EXAM MR cervical spine. INDICATION Neck pain. Altered mental status. Right arm numbness. Recent fall. Neck pain. TECHNIQUE Multiplanar MRI of the cervical spine without contrast. COMPARISON None available. FINDINGS Vertebral body height is normal. There is reversal of the normal cervical lordosis. There is some degenerative endplate changes from C4-5 through C6-7. Signal characteristics of the cervical spinal cord are within normal limits. C2-3: The disc is desiccated, however, there is no significant protrusion. Mild facet arthropathy. No neural foraminal or central canal stenosis. C3-4: There is a small posterior disc protrusion, however no significant central canal stenosis. There is mild facet arthropathy and uncovertebral hypertrophy. Mild left neural foraminal stenosis. No central canal stenosis. C4-5: There is a small posterior disc osteophyte complex. No significant central canal stenosis. Facet arthropathy and uncovertebral hypertrophy result in a severe left and moderate right neural foraminal stenosis. C5-6: There is a small posterior disc osteophyte complex. This results [facility] A Service of [facility] RADIOLOGY TEXT RESULTS PATIENT: EUNICE FLORES LOCATION: [facility] 303- : 53 UNIT #: [id number] AGE: [address]: Keon Martinez MD SEX: M ORDER DR: in a mild central canal stenosis. Uncovertebral hypertrophy and facet arthropathy result in severe bilateral neural foraminal stenosis. C6-7: There is a posterior disc osteophyte complex which indents the anterior thecal sac resulting in mild central canal stenosis. There is a severe right and mild left neural foraminal stenosis due to the uncovertebral hypertrophy and facet arthropathy. IMPRESSION 1. No acute findings. 2. Multilevel degenerative changes of the cervical spine including mild central canal stenosis at C5-6 and C6-7. Dictated by... Anderson Mello M.D. THIS IS AN ELECTRONICALLY VERIFIED REPORT Anderson Mello M.D. at 12/30/2016 1:26 PM EDNA/lenny TD: 12/30/2016 08:36 JOB #: [id number] MRI CENTER REPORT Page 1 of 1 COPY
--- NOTE | ~2016-12-28 | CO ---
Unit #: [id number] #: [id number] Patient: GILES IRBY [id number] [facility] [address] [place], [place] [address] [id number] MR#: [id number] NAME: GILES IRBY ROOM: 303 Age: 61 Sex: M Admission Date: 12/28/2016 : 1955 Attending Physician: Keon Martinez M.D. Primary Care Physician: Primary Care Physician No Consultation Date: 12/30/2016 CONSULTATION REPORT CHIEF COMPLAINT Depression, history of altered mental status. HISTORY OF PRESENT ILLNESS Mr. Giles Irby is a 61-year-old male, seen on 12/30/2016 in room 303, bed 1, at [facility]. The patient was admitted with altered mental status. The patient is alert, oriented, coherent. The patient reports that he is feeling better, but still feeling sad, depressed. Reported initially he was having suicidal ideation, but none now, but reports sober from depression. Vital signs; temperature 98.2, pulse 68, respirations 16, blood pressure 113/80, and oxygen saturation 98%. The patient has a history of previous treatment at [facility] last treated on 12/27/2016. The patient has a history of paranoia, depression, diagnosis of schizoaffective disorder. The patient was on Haldol p.r.n. at [facility]. PAST PSYCHIATRIC HISTORY Remarkable for history of previous treatment at [facility] diagnosed with schizoaffective disorder, history of previous admission last 12/11/2016. MEDICATION HISTORY The patient was on Remeron, Wellbutrin, gabapentin, Seroquel, Lamictal, hydrochlorothiazide, pravastatin. ALLERGIES No known drug allergies. MEDICAL HISTORY The patient has a history of hypertension, hyperlipidemia, history of throat cancer, prostate cancer. FAMILY HISTORY AND SOCIAL HISTORY The patient has a poor support system. No history of abuse. Denied any use of any drugs or alcohol. REVIEW OF SYSTEMS Complete review of systems is unremarkable. MENTAL STATUS EXAMINATION The patient's vital signs; temperature 98.2, pulse 68, respirations 16, blood pressure 113/80, and oxygen saturation 98%. GENERAL APPEARANCE: The patient dressed casually, lying comfortably in bed. Attention span and concentration, fair. Speech, regular rate and Unit #: [id number] #: [id number] Patient: GILES IRBY coherent. Oriented in time, place, and person. Mood and affect, sad, dysphoric, flat. Thought process, coherent. Thought content, the patient denied any suicidal ideation, but reported passive SI, able to contract for safety, guarded, paranoid. Recent and remote memory, fair. Language, intact. Fund of knowledge, fair. Insight and judgment, fair to slightly impaired. DIAGNOSES Psychiatric: Schizoaffective disorder, bipolar type, F25.9. Secondary diagnosis: Deferred. Medical diagnosis: Please refer to H and P. Stressors: Psychosocial stressors. ASSESSMENT AND PLAN 1. Supportive psychotherapy and psychoeducation provided to the patient. 2. Educated about benefits and side effects of medication and course and prognosis of illness. 3. Advised to continue with current treatment and add Remeron 15 mg at bedtime. The patient has a p.r.n. Haldol. We will closely monitor. If needed, consider transferring the patient back to [facility] once the patient is medically stable. Dictated by... Nettie Barrera/jorgito TD: 12/30/2016 18:08 JOB #: [id number] CONSULTATION REPORT Page 1 of 1 X Jean Claude Joyce MD X CONSULTATION REPORT
--- NOTE | ~2016-12-28 | CR94 ---
[facility] A [facility] RADIOLOGY TEXT RESULTS PATIENT: EUNICE FLORES LOCATION: [facility] : 53 UNIT #: [id number] AGE: [address]: Josias Ortiz MD SEX: M ORDER DR: [id number] [facility]. [place], [place] [address] [id number] MR#: [id number] Acc #: [id number] NAME: EUNICE FLORES : 1955 SEX: M STUDY DATE/TIME: 12/28/2016 10:43 UNIT: VIKAS ROOM: STUDY DESCRIPTION: CR Elbow Min 3 Views Rt Attending Physician: Josias Ortiz M.D. Ordering Physician: Josias Ortiz M.D. Primary Care Physician: No Primary Care Physician MEDICAL IMAGING REPORT This report is preliminary unless electronic signature is present EXAM Right elbow 3 views 12/28/2016, 10:43 hours. HISTORY Patient fell 4 weeks ago with pain in right elbow. COMPARISON 12/24/2016. FINDINGS AP, lateral and oblique views demonstrate no intraarticular joint effusion or fracture. No spurring. Soft tissue swelling appears improved from 12/24/2016 with persistent focal soft tissue density posterior to the olecranon measuring up to 1.7 cm previously 2 cm likely fluid in the olecranon bursa. IMPRESSION 1. No intraarticular joint effusion or fracture. 2. There is a slight decrease in diffuse soft tissue swelling with persistent soft tissue density over the olecranon likely fluid or hemorrhage in the olecranon bursa. This is slightly improved from 12/24/2016. Dictated by... Stephanie Wick M.D. THIS IS AN ELECTRONICALLY VERIFIED REPORT Stephanie Wick M.D. at 12/28/2016 2:33 PM SMM/alex TD: 12/28/2016 13:43 JOB #: [id number] [facility] A [facility] RADIOLOGY TEXT RESULTS PATIENT: EUNICE FLORES [id number] 53 UNIT #: [id number] AGE: [address]: Josias Ortiz MD SEX: M ORDER DR: MEDICAL IMAGING REPORT Page 1 of 1 COPY
--- NOTE | ~2016-12-28 | CO ---
Unit #: [id number] #: [id number] Patient: EUNICE FLORES [id number] [facility] [address] [facility]. [place], [place] [address] [id number] Eva MR#: [id number] NAME: EUNICE FLORES ROOM: 303 Age: 61 Sex: M Admission Date: 12/28/2016 : 1955 Attending Physician: Keon Martinez M.D. Consultation Date: 12/29/2016 CONSULTATION REPORT PRIMARY CARE PHYSICIAN None. REASON FOR CONSULTATION Weakness and confusion. PATIENT IDENTIFICATION This is a 61-year-old right-handed male, who was evaluated in room 303 at [facility]. SOURCE OF INFORMATION Some from the patient and some from the medical records. I discussed briefly with Dr. Reid yesterday. PROBLEM LIST 1. This gentleman was transferred from [facility], where he was admitted for psychosis and also suicidal ideation. 2. He has demonstrated weakness and a couple of falls. He has cellulitis in the right elbow. His other problems are; 1. Hypertension. 2. Throat cancer. 3. Prostate cancer. 4. Hypertension. 5. Hyperlipidemia. HISTORY OF PRESENT ILLNESS Unfortunately, I do not have enough information and I tried to call his brother as the patient says that he lives by himself, but apparently he was admitted on 12/11/2016 to [facility] for suicidal ideations and he was treated. He apparently had a fall and he says in the bath tub and then another one, and he had right elbow swelling and possible cellulitis and he has been confused. His premorbid condition is not known to me. His preadmission to psych is not known to me. It looks like he has ataxia and I got a call from the ER yesterday and I told him to get an MRI and if it does not show anything acute, then he needs to first finish his psych evaluation and then have all kind of workup done as outpatient. I do not know the chronicity or acuteness of his condition. He says that he pays his bills and he is on disability. Smokes about a pack a day and drinks half a glass to about 3 glasses every now and then again no way to corroborate. I do not know who is following with what his other medical conditions are and yesterday he may have had a seizure-like event, which is not really clearly described. His labs really do not show anything major. Unit #: [id number] #: [id number] Patient: EUNICE FLORES I am uncertain about any seizure-like event. He was on Lamictal as per the [facility] records and I do not see it anymore. PAST MEDICAL HISTORY As discussed above. ALLERGIES None. MEDICATIONS As per the records are hydrochlorothiazide, atorvastatin, latanoprost, nystatin, Levaquin, acetaminophen, Maalox, MoM, ondansetron, Eucerin cream, haloperidol 5 mg p.o. every 6 hours, Cogentin 1 mg p.o. every 6 hours. FAMILY HISTORY Reviewed and none. SOCIAL HISTORY Apparently lives by himself and smokes about a pack a day. He says that he drinks half of glass to couple of glasses every now and then. Denies use of drugs. He is disabled. REVIEW OF SYSTEMS CONSTITUTIONAL: The patient denies any weight issues, but there is no way to corroborate that. He denies any sleep issues. Denies any fever, chills, rigor, or sweats. HEENT: No headaches. No double vision, earache, runny nose, or sore throat. CARDIOVASCULAR: No chest pain, clubbing, cyanosis, orthopnea, or palpitation. PULMONARY: No shortness of air, cough, or expectoration. GASTROINTESTINAL: No nausea, vomiting, diarrhea, or constipation. GENITOURINARY: No genitourinary symptoms. EXTREMITIES: He is probably ataxic. BACK: No back problem. PSYCHIATRIC: Significant psych issue. NEUROLOGIC: Otherwise not determined. No other hematologic, dermatologic, or endocrine issue. He has right elbow swelling, questionable cellulitis. PHYSICAL EXAMINATION VITAL SIGNS: Temperature 98.3, pulse 75, respirations 16, blood pressure 113/75, O2 saturations were 96% to 100%, weight of 181 pounds. BMI was 21. NEUROLOGIC: The patient is awake. He is alert. He is not oriented to place. He thinks he is still in [facility]. He cannot tell me the day or the date or the month. He can name. He can follow commands. Cranial nerve examination does respond to threats in all polk. Eye movements are conjugate. I did not see any ptosis. I did not see any nystagmus. Extraocular movements seemed to be intact. Pupils are round, reactive to light, and accommodation. Sensation on the face and scalp are normal. Strength of muscles of facial expression seemed to be normal. Hearing seemed to be intact. Tongue was midline. I could not visualize his oropharynx or uvula. Head turning was spontaneous. Unit #: [id number] #: [id number] Patient: EUNICE FLORES Motor examination demonstrated normal bulk and tone. His strength is at least 5-/5. He may have a little bit of ataxia more in the left lower extremity than elsewhere. Also, he has right elbow pain, so some limitation secondary to that. Sensory examination intact for soft touch and pain sensation. No extinction was seen. Romberg was not evaluated. Gait examination was deferred. Position sensation is intact. I could not get any reflexes and toes are equivocal. Coordination, he really could not do szwnjp-gkub-aupimi on the right side, it is okay on the left side. He was struggling with doing ekx-xp-[id number] and could not really do floe-tk-eoak. DIAGNOSTIC STUDIES LABORATORY RESULTS: Reviewed. His AST 78, ALT is 86. White count is 12.6, H and H of 10.3 and 30.3, platelet count was 345. IMAGING STUDIES: Reviewed. His MRI of the brain was reported as unremarkable. IMPRESSION Very strange presentation for this jeff. The basic issues that we do not know much about his history. We do not know what his premorbid condition was. He has significant psych history, so is this delirium or is this dementia, or is this acute, or is this chronic, or is this acute on chronic, or is this is a progressive neuro degenerative condition of some sort. He is definitely ataxic. He had some spells yesterday, so I will start with MRI of the cervical spine. I will check basic labs. I will check his EEG and we will go from there. The most important thing is his history and his course of the disease and we will see how things go. I discuss with the primary team and there is nothing suggesting NPH or obstructive hydrocephalus and that is the reason I requested the MRI and I did not request an admission because this has been going on for quite some time and this could have been evaluated as an outpatient. Nonetheless, I will follow up on the situation right now and see how things go. I will keep you informed. Call me for any other questions, issues, or concerns and I still think he is better off at psychotic institution, but we will see how things go. Unless there are further seizure-like events which are clearly documented, I would like to not add more medication to his list and I will follow up. Dictated by... Nettie Collins/jorgito TD: 12/29/2016 17:13 JOB #: [id number] Unit #: [id number] #: [id number] Patient: EUNICE FLORES CONSULTATION REPORT Page 1 of 1 X Sepideh Ruby MD X CONSULTATION REPORT
--- NOTE | ~2016-12-28 | DS ---
Unit #: [id number] #: [id number] Patient: EUNICE FLORES [id number] [address] [address] [id number] I MR#: [id number] NAME: EUNICE FLORES ROOM: 303 Age: 61 Sex: M Admission Date: 12/28/2016 : 1955 Discharge Date: 12/31/2016 Attending Physician: Keon Martinez M.D. Primary Care Physician: Primary Care Physician No DISCHARGE SUMMARY REASON FOR ADMISSION Frequent falls, ataxia while at [facility]. HISTORY OF PRESENT ILLNESS/HOSPITAL COURSE The patient is a 61-year-old male, originally with prior history of throat cancer, depression, anxiety, generalized psychosis, was actually admitted to [facility] since 12/10/2016 secondary to acute delirium. He had been started on medications including Cogentin, Haldol, as well as Seroquel while there. Apparently, he has had several episodes of frequent falls and ataxia as well as increased confusion and therefore was transferred to [facility]. He subsequently was admitted and placed on telemetry floor. Consultation was placed to Dr. Ruby. The patient ultimately underwent an MRI of brain with and without contrast as well as an MRI of his cervical spine without contrast for concern for possible underlying CVA. His psychiatric medications that were placed on hold throughout his hospital course here. His MRIs returned back negative. At this point in time, the patient is now alert and oriented x3 and he is currently stable for discharge. He has not received any of his Haldol, Cogentin, Seroquel while here. Dr. Joyce was consulted and he made recommendation for Remeron 15 mg p.o. q.h.s. at time of discharge. It was also recommended that he follow up as an outpatient at [facility] for ongoing care. Please note, his blood pressure medications were also discontinued as blood pressure that remained stable without any medications. It seems likely the polypharmacy may have been a contributing factor to his ataxia as well as frequent falls. The patient is currently clinically stable for discharge home with appropriate outpatient followup. He was instructed to follow up with his PCP within 7 days, followup at [facility] as an outpatient within 7 to 10 days as per the recommendation of Dr. Joyce. FINAL DISCHARGE DIAGNOSES 1. Frequent falls likely secondary to polypharmacy. 2. Hypertension. 3. Prior history of throat cancer. 4. Prior history of prostate cancer. 5. Prior history of hyperlipidemia. 6. Acute psychosis, now resolved. FINAL DISCHARGE MEDICATIONS Tylenol 650 mg p.o. q.4 to 6 p.r.n., Mag-Ox 30 mL p.o. q.6 p.r.n., Remeron 15 mg p.o. q.h.s., nystatin 5 mL p.o. t.i.d. swish and spit, Eucerin as directed, pravastatin 10 mg p.o. daily, omeprazole 40 mg p.o. daily. Unit #: [id number] #: [id number] Patient: EUNICE FLORES DISCHARGE CONDITION Stable. DISCHARGE DISPOSITION Home. FOLLOWUP Followup as detailed above. Dictated by... Nettie Rowland/jorgito TD: 01/02/2017 03:15 JOB #: [id number] DISCHARGE SUMMARY Page 1 of 1 X Keon Martinez MD X DISCHARGE SUMMARY
--- NOTE | ~2016-12-28 | CT71 ---
[facility] A Service of [facility] RADIOLOGY TEXT RESULTS PATIENT: EUNICE FLORES LOCATION: [facility] : 53 UNIT #: [id number] AGE: [address]: Josias Ortiz MD SEX: M ORDER DR: [id number] [address] [address] [id number] MR#: [id number] Acc #: [id number] NAME: EUNICE FLORES : 1955 SEX: M STUDY DATE/TIME: 12/28/2016 12:00 UNIT: [facility] ROOM: STUDY DESCRIPTION: CT Head Wo Contrast Attending Physician: Josias Ortiz M.D. Ordering Physician: Josias Ortiz M.D. MEDICAL IMAGING REPORT This report is preliminary unless electronic signature is present EXAM CT head INDICATIONS Confusion today and weakness. TECHNIQUE Axial CT images were obtained from the vertex of the skull through skull base. No intravenous contrast material was administered. This CT exam was performed with one or more of the following radiation dose reduction techniques: automatic exposure control, adjustment of mA and/or kV according to patient size, and iterative reconstruction. FINDINGS No acute intracranial hemorrhage is identified. Brain parenchyma is normal in attenuation without focal areas of decreased attenuation seen. There is no midline shift or mass effect. Visualized paranasal sinuses and mastoid air cells appear clear. No aggressive osseous abnormalities are seen. There are no focal soft tissue abnormalities. IMPRESSION Negative. Dictated by... Areli Tubbs M.D. THIS IS AN ELECTRONICALLY VERIFIED REPORT Areli Tubbs M.D. at 12/28/2016 5:59 PM [facility] A Service [facility] RADIOLOGY TEXT RESULTS PATIENT: EUNICE FLORES LOCATION: [facility] : 53 UNIT #: [id number] AGE: [address]: Josias Ortiz MD SEX: M ORDER DR: Blaine TD: 12/28/2016 15:43 JOB #: [id number] MEDICAL IMAGING REPORT Page 1 of 1 COPY
--- NOTE | ~2016-12-28 | CO ---
Unit #: [id number] #: [id number] Patient: GILES IRBY [id number] [address] [address] [id number] I MR#: [id number] NAME: GILES IRBY ROOM: 303 Age: 61 Sex: M Admission Date: 12/28/2016 : 1955 Attending Physician: Keon Martinez M.D. Primary Care Physician: Primary Care Physician No Consultation Date: 12/31/2016 CONSULTATION REPORT REASON FOR CONSULTATION Followup. DISCUSSION Mr. Giles Irby is a 61-year-old male, seen on room 303, bed 1 on 12/31/2016 at [facility]. The patient diagnosed with schizoaffective disorder, bipolar type. The patient reports feeling better. No side effects from medication. The patient denied any suicidal or homicidal ideation. Denied any psychotic symptom. Vital signs; temperature 98.9, pulse 74, respirations 16, blood pressure 106/58, oxygen saturations 100%. REVIEW OF SYSTEMS Complete review of systems unremarkable. MENTAL STATUS EXAMINATION General appearance, the patient dressed casually in hospital attire, lying comfortably in bed. Attention span and concentration, fair. Speech, regular rate and coherent. Oriented in time, place, and person. Mood and affect; sad and dysphoric. Thought process, coherent. Thought content, the patient denied any thoughts of harming self or others or any psychotic symptom. Recent and remote memory, fair. Language, intact. Fund of knowledge, fair. Insight and judgment, fair to slightly impaired. DIAGNOSES Psychiatric: Schizoaffective disorder, bipolar type, F25.9. ASSESSMENT AND PLAN 1. Supportive psychotherapy and psychoeducation provided to the patient. 2. Educated about benefits and side effects of medication and course and prognosis of illness. 3. We will continue to follow. Please feel free to call if any questions, telephone #[phone]. Dictated by... Jean Claude Joyce M.D. TAMMY/jorgito TD: 12/31/2016 18:28 JOB #: [id number] Unit #: [id number] #: [id number] Patient: GILES IRBY CONSULTATION REPORT Page 1 of 1 X Jean Claude Joyce MD CONSULTATION REPORT
[2016-12-28 11:01] LABS: BASOPHIL# 0.1 X10e3 (0-0.3); BASOPHIL% 0.5 % (0-2.5); EOSINOPHIL# 0.1 X10e3 (0-0.7); EOSINOPHIL% 0.4 % (0.0-7.0); HEMATOCRIT 32.2 % (38.0-50.0); HEMOGLOBIN 10.9 gm/dL (13.0-16.0); LYMPHOCYTE# 1.4 X10e3 (1.0-3.5); LYMPHOCYTE% 11.1 % (17.0-45.0); MEAN CELL VOLUME 94.1 FL (83-96); MEAN CORPUSCULAR HEMOGLOBIN 31.8 PG (28-34); MEAN CORPUSCULAR HGB CONC 33.8 g/dL (30-36); MEAN PLATELET VOLUME 7.5 FL (6.5-11.5); MONOCYTE# 1.2 X10e3 (0-1.0); MONOCYTE% 8.9 % (3.0-12.0); NEUTROPHIL# 10.3 X10e3 (1.5-7.1); NEUTROPHIL% 79.1 % (40-75); PLATELET COUNT 347 X10e3 (140-420); RED BLOOD COUNT 3.42 X10e (3.90-5.60); RED CELL DISTRIBUTION WIDTH 12.9 % (11.0-15.5)
[2016-12-28 11:09] LABS: DIFF IND YES
[2016-12-28 11:17] LABS: PLATELET ESTIMATE NORMAL (NORMAL)
[2016-12-28 11:19] LABS: ALBUMIN SERUM 3.4 g/dL (3.5-5.0); ALKALINE PHOSPHATASE 182 U/L (32-92); ALT (SGPT) 86 U/L (10-40); AST (SGOT) 78 U/L (10-42); BILIRUBIN,TOTAL 0.6 mg/dL (0.2-2.0); BLOOD UREA NITROGEN 47 mg/dL (9-23); BUN/CREATININE RATIO 33.57; CARBON DIOXIDE 28 mmol/L (22-31); CHLORIDE 90 mmol/L (100-111); CREATININE SERUM 1.4 mg/dL (0.6-1.4); GLUCOSE FASTING 93 mg/dL (70-110); LIPASE 26 U/L (22-51); POTASSIUM 3.6 mmol/L (3.5-5.1); PROTEIN TOTAL SERUM 7.7 g/dL (6.0-8.3); SODIUM 130 mmol/L (135-145)
[2016-12-28 11:21] LABS: ALCOHOL BLOOD <5 mg/dL (0)
[2016-12-28 12:12] LABS: URINE SOURCE CLEAN CATCH
[2016-12-28 12:30] LABS: URINE APPEARANCE CLEAR; URINE BILIRUBIN NEG (NEG); URINE BLOOD NEG (NEG); URINE COLOR YELLOW; URINE GLUCOSE NEG (NEG); URINE KETONE NEG (NEG); URINE LEUKOCYTE ESTERASE NEG (NEG); URINE NITRATE NEG (NEG); URINE PROTEIN TRACE (NEG); URINE SPECIFIC GRAVITY 1.023 (1.003-1.035); URINE UROBILINOGEN 0.2 MG/DL (NEG)
[2016-12-28 12:58] LABS: CULTURE INDICATED? NO
[2016-12-28] MEDS ORDERED: ATORVASTATIN CA10 MG PO (14:18)
[2016-12-28] MEDS ORDERED: HYDROCHLOROTHIA25 MG PO (14:18)
[2016-12-28] MEDS ORDERED: LATANOPROST2.5 ML OU (14:19)
[2016-12-28] MEDS ORDERED: NYSTATIN100000 UN1 PO (14:19)
[2016-12-28] MEDS ORDERED: LEVAQUIN PO (14:20)
[2016-12-28] MEDS ORDERED: MAPAP325 M1 PO (14:20)
[2016-12-28] MEDS ORDERED: MAALOX SUSPENS355 ML PO (14:21)
[2016-12-28] MEDS ORDERED: ONDANSETRON ODT4 MG PO (14:22)
[2016-12-28] MEDS ORDERED: MILK OF MAGNESIA PO (14:22)
[2016-12-28] MEDS ORDERED: EUCERIN CREME454 GM TOP (14:22)
[2016-12-28] MEDS ORDERED: HALDOL PO (14:23)
[2016-12-28] MEDS ORDERED: COGENTIN1 MG PO (14:24)
[2016-12-29 05:12] LABS: BASOPHIL# 0.1 X10e3 (0-0.3); BASOPHIL% 0.7 % (0-2.5); EOSINOPHIL% 0.2 % (0.0-7.0); HEMATOCRIT 30.3 % (38.0-50.0); HEMOGLOBIN 10.3 gm/dL (13.0-16.0); LYMPHOCYTE% 15.9 % (17.0-45.0); MEAN CORPUSCULAR HEMOGLOBIN 31.9 PG (28-34); MEAN CORPUSCULAR HGB CONC 33.9 g/dL (30-36); MEAN PLATELET VOLUME 7.7 FL (6.5-11.5); MONOCYTE# 1.1 X10e3 (0-1.0); MONOCYTE% 8.8 % (3.0-12.0); NEUTROPHIL# 9.4 X10e3 (1.5-7.1); NEUTROPHIL% 74.4 % (40-75); PLATELET COUNT 345 X10e3 (140-420); RED BLOOD COUNT 3.23 X10e (3.90-5.60); WHITE BLOOD COUNT 12.6 X10e3 (4.0-10.5)
[2016-12-29 05:13] LABS: DIFF IND NO
[2016-12-29 05:45] LABS: BUN/CREATININE RATIO 27.69; CALCIUM SERUM 9.1 mg/dL (8.4-10.2); CREATININE SERUM 1.3 mg/dL (0.6-1.4); GLOM FILT RATE Estimated 67.8 mL/min (>60); POTASSIUM 3.7 mmol/L (3.5-5.1)
[2016-12-29 11:54] LABS: THYROID STIMULATING HORMONE 1.76 uIU/ml (0.34-5.60)
[2016-12-29 12:01] LABS: FREE THYROXIN (T4) 0.86 ng/dL (0.58-1.64)
[2016-12-29 13:12] LABS: AMPHETAMINE NEG (NEG); BARBITURATES NEG (NEG); BENZODIAZEPINES POS (NEG); COCAINE NEG (NEG); MARIJUANA NEG (NEG); OPIATES POS (NEG); TRICYCLIC ANTIDEPRESSANTS NEG (NEG); U METHADONE NEG (NEG)
[2016-12-30] MEDS ORDERED: QUETIAPINE FUM400 MG PO (01:20)
[2016-12-30] MEDS ORDERED: LAMOTRIGINE300 MG PO (01:21)
[2016-12-30] MEDS ORDERED: BUPROPION HCL200 M1 PO (01:21)
[2016-12-30] MEDS ORDERED: OMEPRAZOLE40 M1 PO (01:22)
[2016-12-30] MEDS ORDERED: TIMOPTIC 0.5% OP5 M2 OU (01:23)
[2016-12-30] MEDS ORDERED: PRAVASTATIN SOD10 MG PO (01:24)
[2016-12-30] MEDS ORDERED: TRAVATAN Z5 ML OU (01:24)
[2016-12-30] MEDS ORDERED: GABAPENTIN400 M2 PO (01:25)
[2016-12-30 05:56] LABS: HEMATOCRIT 27.4 % (38.0-50.0); HEMOGLOBIN 9.4 gm/dL (13.0-16.0); MEAN CELL VOLUME 93.7 FL (83-96); MEAN CORPUSCULAR HEMOGLOBIN 32.1 PG (28-34); MEAN CORPUSCULAR HGB CONC 34.2 g/dL (30-36); MEAN PLATELET VOLUME 7.5 FL (6.5-11.5); RED BLOOD COUNT 2.92 X10e (3.90-5.60); RED CELL DISTRIBUTION WIDTH 12.8 % (11.0-15.5); WHITE BLOOD COUNT 10.7 X10e3 (4.0-10.5)
[2016-12-30 06:40] LABS: BUN/CREATININE RATIO 22.22; CALCIUM SERUM 8.6 mg/dL (8.4-10.2); CREATININE SERUM 0.9 mg/dL (0.6-1.4); GLOM FILT RATE Estimated 105.7 mL/min (>60); POTASSIUM 3.2 mmol/L (3.5-5.1)
[2016-12-31] MEDS ORDERED: REMERON15 MG PO (09:21)
[2016-12-31] MEDS ORDERED: EUCERIN CREME TOP (09:24)
== END 2016-12-31 16:26 | disposition home or self-care (01) ==
LOC: CED 10:11 → C3A PCU 14:45 → CED 19:01 → C3A PCU 12-29 05:54
PROVIDERS: Emergency Medicine; Family Medicine; Internal Medicine
DX: R53.1 Weakness (principal); R27.0 Ataxia, unspecified
CPT/HCPCS: 70450; 70553; 72141; 73080; 80048; 80053; 80307; 81003; 82140; 82607; 82746; 83690; 84439; 84443; 85025; 85027; 96360; 96361; 96374; 97116; 97162; 97167; 97530; 99291; A9577; G0378; G0480; G8978-GP; G8979-GP; G8987-GO; G8988-GO; J2060; J2270; J2405